=== PATIENT | female | born 1980 | race African-American/Black ===

== ENCOUNTER 2016-07-25 11:18 | Emergency (ER) | payer SELFPAY ==
[~2016-07-25] VITALS: Ht 157.5 cm; Wt 72.1 kg
[~2016-07-25 11:18] MED LIST: ACETAMINOPHEN-1 EAC1 PO; IBUPROFEN600 MG ORAL; MEDROL DOSEPAK4 MG ORAL; NKM; TRIAMCINOLONE A80 GM TP
[2016-07-25] MEDS ORDERED: NKM (11:34)
[2016-07-25 11:40] VITALS: BP 139/96
[2016-07-25] MEDS ORDERED: Metoclopramide 10mg/2ml Inj IVP ONE (13:30)
[2016-07-25] MEDS ORDERED: DiphenhydrAMINE 50mg/ml Inj IVP ONE (13:30)
[2016-07-25] MEDS ORDERED: Oxycodone/Acetaminophen 5-325 ORAL ONE (13:30)
[2016-07-25 14:18] LABS: BASOPHILS % (AUTO) 0.8 % (0.0-2.0); EOSINOPHILS % (AUTO) 0.1 % (0.0-3.0); MEAN CORPUSCULAR HEMOGLOBIN 23.1 PG (27.0-31.0); MEAN CORPUSCULAR VOLUME 75 FL (80-99); MEAN PLATELET VOLUME 9.2 FL (6.5-10.1); MONOCYTES % (AUTO) 6.6 % (1.0-10.0); NEUTROPHILS % (AUTO) 83.6 % (45.0-75.0); PLATELET COUNT 252 K/UL (150-450); RED BLOOD COUNT 4.66 M/UL (4.20-5.40); RED CELL DISTRIBUTION WIDTH 15.4 % (11.6-14.8); WHITE BLOOD COUNT 14.4 K/UL (4.8-10.8)
[2016-07-25 14:27] LABS: ALANINE AMINOTRANSFERASE 9 U/L (3-33); ALBUMIN/GLOBULIN RATIO 1.1 (1.0-2.7); ANION GAP 17 (5-15); ASPARTATE AMINO TRANSFERASE 14 U/L (5-40); CALCIUM 9.1 mg/dL (8.6-10.2); CARBON DIOXIDE 23 mEQ/L (20-30); CHLORIDE 97 mEQ/L (98-107); CREATININE 0.7 mg/dL (0.5-0.9); GLOMERULAR FILTRATION RATE > 60 mL/min (>60); HEMOLYSIS 1; POTASSIUM 3.5 mEQ/L (3.4-4.9); SODIUM 137 mEQ/L (135-145); TOTAL PROTEIN 8.2 g/dL (6.6-8.7)
[2016-07-25 15:00] VITALS: BP 116/73
--- NOTE | 2016-07-25 15:05 | Diagnostic Imaging Report ---
Indication: Headache Technique: Contiguous 5 mm thick transaxial imaging of the head obtained in a Siemens Sensation [address] scanner. Soft tissue and bone windows generated. Total Dose length Product (DLP): [address] Dose Index Volume (CTDIvol): 70.38 mGy Comparison: none Findings: The size and configuration of the cortical sulci, basal cisterns, and ventricles are within normal limits for age. There is no mass effect, midline shift, or edema identified. There is no evidence of acute hemorrhage or abnormal intra-axial or extra-axial fluid collections. The bones and soft tissues are unremarkable. Impression: No mass effect, edema or acute bleed. The CT scanner at [facility] is accredited by the [employer] and the scans are performed using protocols designed to limit radiation exposure to as low as reasonably achievable to attain images of sufficient resolution adequate for diagnostic evaluation.
[2016-07-25] MEDS ORDERED: cefTRIAXone 1 GM in NS 55 ML IVPB ONE (17:00)
[2016-07-25] MEDS ORDERED: Dexamethasone 4mg/ml vial IVP ONE (17:00)
[2016-07-25] MEDS ORDERED: fentaNYL 100 mcg/2 mL IV ONE (17:00)
[2016-07-25 17:42] VITALS: BP 121/68
[2016-07-25] MEDS ORDERED: Ketorolac 30mg Inj IV ONE (18:45)
[2016-07-25 19:25] VITALS: BP 117/61
[2016-07-25] MEDS ORDERED: NORCO 5-325 TA1 EACH ORAL (19:50)
[2016-07-25] MEDS ORDERED: AUGMENTIN 500-1 EACH ORAL (19:50)
[2016-07-25] MEDS ORDERED: IBUPROFEN600 MG ORAL (19:50)
[2016-07-25 20:04] VITALS: BP 121/65
--- NOTE | 2016-07-26 01:23 | Emergency Room Report ---
Physical Exam Please refer to note by Dr. Snowden. SALGUERO and sore throat, fever, back pain. No sinus pain or discharge. Several weeks of illness worsened recently. Treated with reglan, benadryl, percocet and IV hydration. Improved but still with SALGUERO. Vital Signs Date Time Temp Pulse Resp B/P Pulse Ox O2 Delivery O2 Flow Rate FiO2 07/25/16 11:29 100.2 123 16 139/96 100 Room Air Sp02 EP Interpretation: reviewed, normal General Appearance: no apparent distress, GCS 15 Head: normocephalic Eyes: bilateral eye EOMI, bilateral eye PERRL, bilateral eye normal inspection ENT: moist mucus membranes, pharyngeal erythema Neck: full range of motion, supple, no meningismus, no bony tend Respiratory: lungs clear, normal breath sounds Cardiovascular #1: tachycardia Cardiovascular #2: 2+ radial (R) Gastrointestinal: normal inspection, normal bowel sounds, non tender, no mass, non-distended Musculoskeletal: back normal, gait/station normal, normal range of motion Neurologic: alert, oriented x3, motor strength/tone normal, DTRs symmetric, sensory intact, normal gait, speech normal Psychiatric: mood/affect normal Skin: normal inspection, warm/dry Medical Decision Making Diagnostic Impression: Primary Impression: Pharyngitis Qualified Codes: J02.9 - Acute pharyngitis, unspecified Additional Impressions: Dehydration Headache ER Course Please see full note from Dr. Snowden. Patient still feels ill. Differntial: pharyngitis, sinusitis, UTI, dehydration , influenza. Exam against meningitis or cerebritis. Flu swab ordered. IV hydration continued. Second liter ordered with decadron and ceftriaxone. Small dose of fentanyl ordered. Flu negative. Still with SALGUERO. Toradol ordered. Much improved. Patient stable for outpatient observation and treatment. Laboratory Tests Test 07/25/16 13:30 07/25/16 13:34 White Blood Count 14.4 K/UL (4.8-10.8) H Red Blood Count 4.66 M/UL (4.20-5.40) Hemoglobin 10.8 G/DL (12.0-16.0) L Hematocrit 34.7 % (37.0-47.0) L Mean Corpuscular Volume 75 FL (80-99) L Mean Corpuscular Hemoglobin 23.1 PG (27.0-31.0) L Mean Corpuscular Hemoglobin Concent 31.0 G/DL (32.0-36.0) L Red Cell Distribution Width 15.4 % (11.6-14.8) H Platelet Count 252 K/UL (150-450) Mean Platelet Volume 9.2 FL (6.5-10.1) Neutrophils (%) (Auto) 83.6 % (45.0-75.0) H Lymphocytes (%) (Auto) 9.0 % (20.0-45.0) L Monocytes (%) (Auto) 6.6 % (1.0-10.0) Eosinophils (%) (Auto) 0.1 % (0.0-3.0) Basophils (%) (Auto) 0.8 % (0.0-2.0) Sodium Level 137 mEQ/L (135-145) Potassium Level 3.5 mEQ/L (3.4-4.9) Chloride Level 97 mEQ/L (98-107) L Carbon Dioxide Level 23 mEQ/L (20-30) Anion Gap 17 (5-15) H Blood Urea Nitrogen 5 mg/dL (7-23) L Creatinine 0.7 mg/dL (0.5-0.9) Estimate Glomerular Filtration Rate > 60 mL/min (>60) Glucose Level 93 mg/dL (74-106) Calcium Level 9.1 mg/dL (8.6-10.2) Total Bilirubin 0.2 mg/dL (0.0-1.2) Aspartate Amino Transferase (AST) 14 U/L (5-40) Alanine Aminotransferase (ALT) 9 U/L (3-33) Alkaline Phosphatase 72 U/L (35-104) Total Protein 8.2 g/dL (6.6-8.7) Albumin 4.3 g/dL (3.5-5.2) Globulin 3.9 g/dL Albumin/Globulin Ratio 1.1 (1.0-2.7) Urine Color Pale yellow Urine Appearance Clear Urine pH 7 (4.5-8.0) Urine Specific [place] 1.005 (1.005-1.035) Urine Protein 1+ (NEGATIVE) H Urine Glucose (UA) Negative (NEGATIVE) Urine Ketones Negative (NEGATIVE) Urine Occult Blood 1+ (NEGATIVE) H Urine Nitrite Negative (NEGATIVE) Urine Bilirubin Negative (NEGATIVE) Urine Urobilinogen Normal MG/DL (0.0-1.0) Urine Leukocyte Esterase Negative (NEGATIVE) Urine RBC 2-4 /HPF (0 - 2) H Urine WBC 0-2 /HPF (0 - 2) Urine Squamous Epithelial Cells Few /LPF (NONE/OCC) Urine Bacteria Few /HPF (NONE) Urine HCG, Qualitative Negative Microbiology Date/Time Source Procedure Growth Status 07/25/16 15:45 Nose Influenza Types A,B Antigen (ERWIN) - Final Complete Last Vital Signs Date Time Temp Pulse Resp B/P Pulse Ox O2 Delivery O2 Flow Rate FiO2 07/25/16 20:04 98.9 99 16 121/65 100 Room Air Status: improved Disposition: HOME, SELF-CARE Condition: Improved Scripts Amoxicillin/Potassium Clav 500-125 Tablet* (AUGMENTIN 500-125 TABLET*) 1 Each Tablet 1 TAB ORAL THREE TIMES A DAY, #21 TAB Prov: Shay Ugalde M.D. 07/25/16 Hydrocodone Bit/Acetaminophen 5-325* (NORCO 5-325*) 1 Each Tablet 1 TAB ORAL Q6H Y for For Pain, #10 TAB 0 Refills Prov: Shay Ugalde M.D. 07/25/16 Ibuprofen* (MOTRIN*) 600 Mg Tablet 600 MG ORAL Q6H Y for For Pain, #20 TAB Prov: Shay Ugalde M.D. 07/25/16 Departure Forms: Return to Work Return to Work in (Days): 3 Return to Work Date: Jul 28, 2016 Work Restrictions: None Patient Instructions: Pharyngitis, Dehydration, Adult Additional Instructions: OK to take tylenol if not taking norco. Increase your fluids. Return if you are not doing well. Shay Ugalde M.D. Jul 26, 2016 01:23
[2016-07-26 01:35] LABS: APPEARANCE,URINE CLEAR; KETONES,URINE NEGATIVE (NEGATIVE); LEUKOCYTE ESTERASE ,URINE NEGATIVE (NEGATIVE); NITRITE,URINE NEGATIVE (NEGATIVE); PH,URINE 7 (4.5-8.0); PROTEIN,URINE 1+ (NEGATIVE); UROBILINOGEN,URINE NORMAL MG/DL (0.0-1.0)
[2016-07-26 01:44] LABS: BACTERIA,URINE FEW /HPF; SQUAMOUS EPITHELIAL CELL,UR FEW /LPF (NONE/OCC); WBC,URINE 0-2 /HPF (0 - 2)
--- NOTE | 2016-07-26 07:13 | Emergency Room Report ---
History of Present Illness General Chief Complaint: Upper Respiratory Illness Source: Patient Present Illness HPI [id number] presents with constellation of sore throat, body aches, frontal headache ( 7/10, non radiating, worse with light) in setting of multiple weeks of fluctuating symptoms. Did not have flu shot. No sick contacts at home. Denies history of migraines. Didnt take any OTC meds at home. Allergies: Coded Allergies: No Known Allergies (Unverified , 01/21/13) Patient History Past Medical History: none Past Surgical History: none Pertinent Family History: none Social History: Denies: alcohol use, drug use, smoking Last Menstrual Period: 06/28/16 Now: No - Home neg x 6 Immunizations: UTD Reviewed Nursing Documentation: PMH: Agreed, PSxH: Agreed Review of Systems All Other Systems: negative except mentioned in HPI Physical Exam Vital Signs Date Time Temp Pulse Resp B/P Pulse Ox O2 Delivery O2 Flow Rate FiO2 07/25/16 11:29 100.2 123 16 139/96 100 Room Air Sp02 EP Interpretation: reviewed, abnormal General Appearance: normal inspection, well appearing, alert, GCS 15, non-toxic , mild distress Head: normocephalic, atraumatic Eyes: bilateral eye EOMI, bilateral eye PERRL ENT: normal ENT inspection, hearing grossly normal, normal voice Neck: normal inspection, full range of motion, supple, no bony tend Respiratory: normal inspection, lungs clear, normal breath sounds, no respiratory distress, no retraction, no wheezing Cardiovascular #1: regular rate, rhythm, no edema Gastrointestinal: normal inspection, normal bowel sounds, non tender, soft, no guarding, no hernia Genitourinary: no CVA tenderness Musculoskeletal: normal inspection, back normal, normal range of motion, Umer' s Sign negative Neurologic: normal inspection, alert, oriented x3, responsive, event av operator III-XII nml as tested, motor strength/tone normal, speech normal, other - negative cristobal szymanski Psychiatric: normal inspection, judgement/insight normal, memory normal, mood/ affect normal, no suicidal/homicidal ideation, no delusions Skin: no rash Medical Decision Making Diagnostic Impression: Primary Impression: Pharyngitis Qualified Codes: J02.9 - Acute pharyngitis, unspecified Additional Impressions: Dehydration Headache ER Course 35 YO F with likely viral illness. Low grade fever. Low suspicion for SAH or meningitis given no focal neuro deficits, duration of symptoms, well appearance Labs: Leuks 14k. UA negative for infection CT head does not demonstrate mass, SAH Improved with IVF, reglan/benadryl Still feeling unwell Endorsed to Dr Ugalde at 3pm to reassess Last Vital Signs Date Time Temp Pulse Resp B/P Pulse Ox O2 Delivery O2 Flow Rate FiO2 07/25/16 20:04 98.9 99 16 121/65 100 Room Air Disposition: HOME, SELF-CARE Condition: Improved Scripts Amoxicillin/Potassium Clav 500-125 Tablet* (AUGMENTIN 500-125 TABLET*) 1 Each Tablet 1 TAB ORAL THREE TIMES A DAY, #21 TAB Prov: Shay Ugalde M.D. 07/25/16 Hydrocodone Bit/Acetaminophen 5-325* (NORCO 5-325*) 1 Each Tablet 1 TAB ORAL Q6H Y for For Pain, #10 TAB 0 Refills Prov: Shay Ugalde M.D. 07/25/16 Ibuprofen* (MOTRIN*) 600 Mg Tablet 600 MG ORAL Q6H Y for For Pain, #20 TAB Prov: Shay Ugalde M.D. 07/25/16 Departure Forms: Return to Work Return to Work in (Days): 3 Return to Work Date: Jul 28, 2016 Work Restrictions: None Patient Instructions: Pharyngitis, Dehydration, Adult Additional Instructions: OK to take tylenol if not taking norco. Increase your fluids. Return if you are not doing well. DONAVAN LAM M.D. Jul 26, 2016 07:13
== END 2016-07-25 20:04 | disposition home or self-care (01) ==
LOC: EMR 13:37
DX: J02.9 Acute pharyngitis, unspecified (principal); E86.0 Dehydration; R51 Headache
CPT/HCPCS: 36415; 70450; 80053; 81003; 81025; 85025; 86710; 96374; 96375; 99284; J0696; J1100; J1200; J1885; J2765; J3010

== ENCOUNTER 2018-07-21 09:36 | Emergency (ER) | payer MEDICAID, OTHER ==
[~2018-07-21] VITALS: Ht 157.5 cm; Wt 78.5 kg
[~2018-07-21 09:36] MED LIST changes: +AUGMENTIN 500-1 EACH ORAL; +NORCO 5-325 TA1 EACH ORAL
[2018-07-21] MEDS ORDERED: CALCIUM500 M3 PO (09:43)
[2018-07-21 09:46] VITALS: BP 126/80
--- NOTE | 2018-07-21 09:52 | NUR ---
ED Nurse Note: patient walked in by her self, complaining of headache 10/10. per patient she has secvere headache for 4 days. patient is 14 week. AAO x 4, skin is dry, intact. VSS at this time.
[2018-07-21] MEDS ORDERED: Morphine Sulfate 4mg/ml Inj (IV USE ONLY) IVP ONE (10:00)
[2018-07-21] MEDS ORDERED: Metoclopramide 10mg/2ml Inj IVP ONE (10:00)
[2018-07-21 10:44] VITALS: BP 130/80
[2018-07-21 10:59] LABS: APPEARANCE,URINE CLEAR; BILIRUBIN, URINE NEGATIVE (NEGATIVE); COLOR,URINE PALE YELLOW; GLUCOSE, URINE (UA) NEGATIVE (NEGATIVE); KETONES,URINE NEGATIVE (NEGATIVE); LEUKOCYTE ESTERASE ,URINE NEGATIVE (NEGATIVE); NITRITE,URINE NEGATIVE (NEGATIVE); PH,URINE 7 (4.5-8.0); PROTEIN,URINE NEGATIVE (NEGATIVE); UROBILINOGEN,URINE NORMAL MG/DL (0.0-1.0)
[2018-07-21 11:55] VITALS: BP 124/75
--- NOTE | 2018-07-21 11:56 | NUR ---
ED Nurse Note: Pt. AAOX4. ambulatory with steady gait. Pt. education done regarding dc papers. Pt. verbalized the understanding of the teaching. VSS. ID victor manuel mooreoved
--- NOTE | 2018-07-21 13:25 | Emergency Room Report ---
History of Present Illness General Chief Complaint: Headache Source: Patient Present Illness HPI Patient is 14 weeks . Patient states that she has a history of migraine headaches. She's had migraines for the last 3-4 days. Patient states that she usually takes Excedrin Migraine that she's she hasn't taken any. Patient complains of nausea but no vomiting. Denies any chest pain shortness of breath. She does complain of photophobia. Patient denies any fever neck pain neck stiffness. No other complaints are noted. Symptoms noted to be moderate. Patient does not want a CAT scan. The patient is agreeable receiving medications. No other modifying factors. No other associated signs and symptoms. No other complaints were noted. Allergies: Coded Allergies: No Known Allergies (Unverified , 07/21/18) Patient History Past Medical History: other - Migraine headaches, Past Surgical History: none Pertinent Family History: none Social History: Denies: smoking, alcohol use, drug use Now: Yes : 2 Para: 1 Reviewed Nursing Documentation: PMH: Agreed; PSxH: Agreed Nursing Documentation-PMH Past Medical History: No History, Except For Review of Systems All Other Systems: negative except mentioned in HPI Physical Exam Vital Signs Date Time Temp Pulse Resp B/P (MAP) Pulse Ox O2 Delivery O2 Flow Rate FiO2 07/21/18 09:39 97.3 96 12 126/80 100 Room Air Sp02 EP Interpretation: reviewed, normal General Appearance: alert, mild distress Head: atraumatic Eyes: bilateral eye normal inspection ENT: normal ENT inspection, hearing grossly normal, normal voice Neck: normal inspection, full range of motion, supple, no bony tend Respiratory: normal inspection, lungs clear, normal breath sounds, no respiratory distress, no retraction, no wheezing Cardiovascular #1: regular rate, rhythm, no edema Gastrointestinal: normal inspection, normal bowel sounds, soft, no guarding, no hernia, other - Gravid uterus Genitourinary: no CVA tenderness Musculoskeletal: normal inspection, back normal, normal range of motion Neurologic: normal inspection, alert, responsive, speech normal Psychiatric: normal inspection, judgement/insight normal, mood/affect normal Skin: normal inspection, normal color, no rash Medical Decision Making Diagnostic Impression: Primary Impression: Additional Impression: Headache ER Course Patient presents emergency department today complaining headache. Difficult considerations include migraine headaches, induced hypertension and headache. Patient's exam is benign. Patient has a history of migraine headaches. Patient urine was negative for proteins. There is no evidence of preeclampsia or elevated blood pressure. Patient was given pain medications fluids and feels much better. Therefore I feel the patient be discharged home. Recommend close patient follow-up.Patient is advised to follow up with primary doctor in 2-3 days and return the emergency room for any worsening symptoms and as needed. Labs Test 07/21/18 10:35 Urine Color Pale yellow Urine Appearance Clear Urine pH 7 (4.5-8.0) Urine Specific [place] 1.005 (1.005-1.035) Urine Protein Negative (NEGATIVE) Urine Glucose (UA) Negative (NEGATIVE) Urine Ketones Negative (NEGATIVE) Urine Blood Negative (NEGATIVE) Urine Nitrite Negative (NEGATIVE) Urine Bilirubin Negative (NEGATIVE) Urine Urobilinogen Normal MG/DL (0.0-1.0) Urine Leukocyte Esterase Negative (NEGATIVE) Urine RBC 0 /HPF (0 - 2) Urine WBC 0 /HPF (0 - 2) Urine Squamous Epithelial Cells None /LPF (NONE/OCC) Urine Bacteria None /HPF (NONE) Last Vital Signs Date Time Temp Pulse Resp B/P (MAP) Pulse Ox O2 Delivery O2 Flow Rate FiO2 07/21/18 11:55 98.2 87 16 124/75 100 Room Air Status: improved Disposition: HOME, SELF-CARE Condition: Stable Patient Instructions: Migraine Headache Julio Lawrence MD Jul 21, 2018 13:25
== END 2018-07-21 11:57 | disposition home or self-care (01) ==
LOC: EMR 09:55
DX: O26.899 Other specified pregnancy related conditions, unspecified trimester (principal); Z3A.00 Weeks of gestation of pregnancy not specified
CPT/HCPCS: 81001; 96361; 96374; 96375; 99284; J2270; J2765

== ENCOUNTER 2019-01-22 17:45 | Emergency (ER) | payer OTHER ==
[~2019-01-22] VITALS: Ht 157.5 cm; Wt 72.6 kg
[~2019-01-22 17:45] MED LIST changes: +CALCIUM500 M3 PO
--- NOTE | 2019-01-22 17:57 | NUR ---
ED Nurse Note: PT WALKED IN TO ER TODAY FROM HOME. AOX4. PT C/O FEVER AND CHILLS X 2 DAYS AGO. PT STATES TEMP AT HOME TODAY WAS 102F. PT STATE SHE TOOK IBUPROFEN 800MG. ORAL TEMP AT BEDSIDE 98.2F. PT IS S/P 01/08/19. SURGICAL SITE DRESSED WITH GAUZE WHICH PT STATES IS TO BE REMOVED AT HER DOCTOR'S OFFICE NEXT WEEK. PT DENIES FOUL ODOR, BLEEDING, DRAINAGE OR PAIN AT SURGICAL SITE. PT DOES C/O BILATERAL BREAST PAIN PARTICULARLY WHEN THE BABY LATCHES ON FOR FEEDING BUT DENIES TENDERNESS OR SWELLING.
[2019-01-22 18:02] VITALS: BP 122/74
--- NOTE | 2019-01-22 18:26 | NUR ---
ED Nurse Note: XRAY AT BEDSIDE.
[2019-01-22 18:34] LABS: APPEARANCE,URINE CLEAR; BILIRUBIN, URINE NEGATIVE (NEGATIVE); GLUCOSE, URINE (UA) NEGATIVE (NEGATIVE); KETONES,URINE NEGATIVE (NEGATIVE); LEUKOCYTE ESTERASE ,URINE 1+ (NEGATIVE); NITRITE,URINE NEGATIVE (NEGATIVE); PH,URINE 6 (4.5-8.0); PROTEIN,URINE 2+ (NEGATIVE); UROBILINOGEN,URINE NORMAL MG/DL (0.0-1.0)
[2019-01-22 18:35] LABS: COLOR,URINE YELLOW
--- NOTE | 2019-01-22 18:49 | NUR ---
ED Nurse Note: SURGICAL SITE DRESSING REMOVED. SITE LOOKS CLEAN, DRY, AND INTACT. NO SIGNS OF INFECTION. NO REDNESS, DRAINGE OR BLEEDING.
[2019-01-22] MEDS ORDERED: TYLENOL EXTRA500 MG ORAL (19:03)
--- NOTE | 2019-01-22 19:06 | NUR ---
ED Nurse Note: PT LAYING PEACEFULLY IN BED IN NAD. AOX4. PRESCRIPTION AND DISCHARGE PAPERWORK EXPLAINED TO PT. PT VERBALIZES UNDERSTANDING AND ALL QUESTIONS ANSWERED. PRESCRIPTION AND DISCHARGE PAPERWORK GIVEN TO PT AND ID WRISTBAND REMOVED. PT WALKED OUT OF ER WITH STEADY GAIT AND ALL BELONGINGS.
[2019-01-22 19:07] VITALS: BP 118/72
--- NOTE | 2019-01-22 19:14 | Emergency Room Report ---
History of Present Illness General Chief Complaint: Fever Source: Patient, Medical Record Present Illness HPI 38-year-old female presents ED for evaluation. Complaining of body aches and fever for 3 days. Pain is dull, 6 out of 10, nonradiating. Denies sore throat or cough. States that she is breast-feeding and approximately 2 weeks ago. Denies any breast pain. Denies any pain over scar. Denies any dysuria or hematuria. Denies any flank pain. No other aggravating relieving factors. Denies any other associated symptoms Allergies: Coded Allergies: No Known Allergies (Unverified , 07/21/18) Patient History Past Medical History: none Past Surgical History: none Pertinent Family History: none Social History: Denies: smoking, alcohol use, drug use Now: No - Immunizations: UTD Reviewed Nursing Documentation: PMH: Agreed; PSxH: Agreed Nursing Documentation-PMH Past Medical History: No History, Except For Review of Systems All Other Systems: negative except mentioned in HPI Physical Exam Vital Signs Date Time Temp Pulse Resp B/P (MAP) Pulse Ox O2 Delivery O2 Flow Rate FiO2 01/22/19 17:49 98.2 107 18 125/76 (92) 96 Room Air Sp02 EP Interpretation: reviewed, normal General Appearance: no apparent distress, alert, GCS 15, non-toxic Head: normocephalic, atraumatic Eyes: bilateral eye normal inspection, bilateral eye PERRL ENT: hearing grossly normal, normal pharynx, no angioedema, normal voice Neck: full range of motion, supple/symm/no masses Respiratory: chest non-tender, lungs clear, normal breath sounds, speaking full sentences Cardiovascular #1: regular rate, rhythm, no edema Cardiovascular #2: 2+ carotid (R), 2+ carotid (L), 2+ radial (R), 2+ radial (L) , 2+ dorsalis pedis (R), 2+ dorsalis pedis (L) Gastrointestinal: normal bowel sounds, non tender, soft, non-distended, no guarding, no rebound Rectal: deferred Genitourinary: normal inspection, no CVA tenderness Musculoskeletal: back normal, gait/station normal, normal range of motion, non- tender Neurologic: alert, oriented x3, responsive, motor strength/tone normal, sensory intact, speech normal Psychiatric: judgement/insight normal, memory normal, mood/affect normal, no suicidal/homicidal ideation Reflexes: 3+ bicep (R), 3+ bicep (L), 3+ tricep (R), 3+ tricep (L), 3+ knee (R) , 3+ knee (L) Skin: other - c section scar C/D/I. building stonecutter present - no breast tenderness/ induration/erythema Lymphatic: no adenopathy Medical Decision Making Diagnostic Impression: Primary Impression: Viral syndrome ER Course Hospital Course 38-year-old female presents with body aches, fever x3 days. Is post . Currently breast-feeding Differential diagnoses include: URI, pharyngitis, otitis media, mastitis, surgical site infection Clinical course Patient placed on stretcher. After initial history, physical exam reveals a female in no acute distress. Bilateral TM unremarkable. No pharyngeal erythema. No tonsillar exudates. No lymphadenopathy. lungs clear. abdomen soft. building stonecutter present. There is no signs of erythema or induration to the breast. No sign of mastitis. Surgical site of is clean/dry/intact. No sign of infection Chest x-rayno acute infiltrate, no consolidation, no focal process UA negative I discussed findings with patient. No obvious source of infection. Afebrile in ED. Likely viral. However I encourage patient to watch for signs of mastitis. 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 Safe for discharge for close outpatient follow-up Diagnosis - viral syndrome Stable and discharged home with Rx Tylenol. Instructed to followup with PMD. Return to ED if symptoms recur or worsen Labs Test 01/22/19 18:16 Urine Color Yellow Urine Appearance Clear Urine pH 6 (4.5-8.0) Urine Specific [place] 1.010 (1.005-1.035) Urine Protein 2+ (NEGATIVE) Urine Glucose (UA) Negative (NEGATIVE) Urine Ketones Negative (NEGATIVE) Urine Blood 3+ (NEGATIVE) Urine Nitrite Negative (NEGATIVE) Urine Bilirubin Negative (NEGATIVE) Urine Urobilinogen Normal MG/DL (0.0-1.0) Urine Leukocyte Esterase 1+ (NEGATIVE) Urine RBC 2-4 /HPF (0 - 2) Urine WBC 0-2 /HPF (0 - 2) Urine Squamous Epithelial Cells Occasional /LPF Urine Bacteria Occasional /HPF (NONE) Urine HCG, Qualitative Negative (NEGATIVE) Chest X-Ray Diagnostic Results Chest X-Ray Diagnostic Results : Chest X-Ray Ordered: Yes # of Views/Limited/Complete: 1 View Indication: Other EP Interpretation: Yes Interpretation: no consolidation, no effusion, no pneumothorax, no acute cardiopulmonary disease Impression: No acute disease Electronically Signed by: Electronically signed by Johnathon Ledesma MD Last Vital Signs Date Time Temp Pulse Resp B/P (MAP) Pulse Ox O2 Delivery O2 Flow Rate FiO2 01/22/19 19:07 98.3 88 17 118/72 99 Room Air Status: improved Disposition: HOME, SELF-CARE Condition: Stable Scripts Acetaminophen* (TYLENOL EXTRA STRENGTH*) 500 Mg Tablet 500 MG ORAL Q8H PRN for Prn Headache/Temp > 101, #30 TAB 0 Refills Prov: Johnathon Ledesma MD 01/22/19 Patient Instructions: Fever, Adult, [id number] Additional Instructions: check to make sure your breasts do not develop redness/swelling/pain. that would be concerning of mastitis. Johnathon Ledesma MD Jan 22, 2019 19:14
--- NOTE | 2019-01-23 12:36 | Diagnostic Imaging Report ---
Indication: Cough Comparison: 01/21/2013 A single view chest radiograph was obtained. Findings: Cardiomediastinal appearance is within normal limits for age. The lungs are clear. Pulmonary vascularity is appropriate. The diaphragmatic contour is smooth and costophrenic angles are sharp. No pleural effusions are identified. The bones are unremarkable. Impression: No acute findings
== END 2019-01-22 19:06 | disposition home or self-care (01) ==
LOC: EMR 18:50
DX: B34.9 Viral infection, unspecified (principal)
CPT/HCPCS: 71045; 81003; 81025; 99283